=== PATIENT | female | born 1950 | race African-American/Black ===

== ENCOUNTER 2021-06-02 20:57 | Inpatient (IN) | payer MEDICARE, MEDICAID ==
[~2021-06-02] VITALS: Ht 165.1 cm; Wt 68.0 kg
[2021-06-02] MEDS ORDERED: ALBUTEROL (0.083%) 2.5MG/3ML NEB HHN STA (21:46)
[2021-06-02] MEDS ORDERED: IPRATROPIUM BROMIDE (0.02%) 0.5MG/2.5ML NEB HHN STA (21:46)
[2021-06-02] MEDS ORDERED: METHYLPREDNISOLONE SOD SUCC 125 MG/2 ML VIAL IV STA (21:46)
[2021-06-02 23:33] LABS: CHLORIDE 108 mEq/L (98-107)
[2021-06-02 23:34] LABS: BASOPHILS % 0.4 % (0.0-2.0); EOSINOPHILS % 0.2 % (0.0-5.0); HEMATOCRIT. 36.4 % (36.0-48.0); HEMOGLOBIN. 11.7 g/dL (12.0-16.0); LYMPHOCYTES % 20.5 % (20.0-50.0); MEAN CORPUSCULAR HEMOGLOBIN 31.5 pg (28.0-32.0); MEAN CORPUSCULAR VOLUME 97.6 fL (81.0-99.0); MEAN PLATELET VOLUME 7.9 fl (7.4-10.4); MONOCYTES % 7.1 % (2.0-8.0); NEUTROPHILS % 71.8 % (40.0-76.0); PLATELET 277 x1000/uL (130-400); RED BLOOD CELL COUNT 3.73 mill/uL (4.2-5.4)
[2021-06-03] MEDS ORDERED: AZITHROMYCIN 500MG/250ML 250 ML IV SCH
[2021-06-03] MEDS ORDERED: CEFTRIAXONE 1 G PREMIX 50 ML IV NR
[2021-06-03] MEDS ORDERED: IOHEXOL-350 100 ML BOTTLE ONE (06:09)
[2021-06-03] MEDS ORDERED: ONDANSETRON HCL 4MG/2ML INJ IV PRN (09:30)
[2021-06-03] MEDS ORDERED: CEFTRIAXONE 1 G PREMIX 50 ML IV SCH (09:30)
[2021-06-03] MEDS ORDERED: ACETAMINOPHEN 325MG TABLET PO PRN (09:30)
[2021-06-03] MEDS ORDERED: AZITHROMYCIN 500 MG in DEXT 5% WATER 250 ML IV SCH (10:00)
[2021-06-03] MEDS ORDERED: METHYLPREDNISOLONE SOD SUCC 40 MG/ML VIAL IV SCH (10:00)
[2021-06-03 10:24] VITALS: BP 133/71
[2021-06-03] MEDS ORDERED: IPRATROPIUM/ALBUTEROL 0.5-3(2.5)MG/3ML NEB HHN SCH (12:00)
[2021-06-04] MEDS ORDERED: CEFTRIAXONE 1,000 MG in DEXTROSE 5% WATER 50 ML IV SCH ×2
[2021-06-04] MEDS ORDERED: AZITHROMYCIN 500 MG in DEXT 5% WATER 250 ML IV SCH (01:00)
== END 2021-06-03 12:38 | disposition left against medical advice (07) | DRG 190 ==
LOC: ER 20:57 → MICUSO 06-03 → 8WST 06-03 09:45
PROVIDERS: ADMIT Internal Medicine; ATTEND Internal Medicine
DX: J44.1 Chronic obstructive pulmonary disease with (acute) exacerbation (principal); J18.9 Pneumonia, unspecified organism; J44.0 Chronic obstructive pulmonary disease with (acute) lower respiratory infection; Z20.822 Contact with and (suspected) exposure to COVID-19; Z53.29 Procedure and treatment not carried out because of patient's decision for other reasons; K21.9 Gastro-esophageal reflux disease without esophagitis; I10 Essential (primary) hypertension; E87.8 Other disorders of electrolyte and fluid balance, not elsewhere classified; M32.9 Systemic lupus erythematosus, unspecified; Z86.711 Personal history of pulmonary embolism
CPT/HCPCS: 36415; 71045; 71275; 80053; 83880; 84484; 85025; 87426; 99285; J0456; J0696; J2920; J2930; J7060; Q9967